=== PATIENT | male | born 1995 | race Caucasian/White ===

== ENCOUNTER 2019-04-20 14:12 | Emergency (ER) | payer BC ==
[~2019-04-20] VITALS: Ht 175.3 cm; Wt 90.7 kg
[2019-04-20] MEDS ORDERED: NOHOMEMEDICATIONS (14:20)
[2019-04-20 15:19] LABS: ABSOLUTE EOSINOPHILS 0.1 thou/uL (0.0-0.7); ABSOLUTE LYMPHOCYTES 1.6 thou/uL (0.8-5.3); ABSOLUTE MONOCYTES 0.3 thou/uL (0.0-1.2); ABSOLUTE NEUTROPHILS 3.7 thou/uL (1.6-8.1); BASOPHILS 0.5 %; EOSINOPHILS 2.5 %; HEMATOCRIT 47.4 % (42.0-52.0); HEMOGLOBIN 15.7 gm/dL (14.0-18.0); LYMPHOCYTES 27.8 %; MCH 27.6 pg (26.0-34.0); MCHC 33.2 g/dL (28.0-37.0); MCV 83.3 fL (80.0-100.0); MONOCYTES 5.2 %; MPV 9.7 fl. (7.2-11.1); NUCLEATED RBCS 0 /100WBC; PLATELET COUNT* 231 thou/uL (150-400); RBC 5.69 mil/uL (4.50-6.00); RDW-CV 13.6 % (10.5-14.5); WBC 5.8 thou/uL (4.0-11.0)
[2019-04-20 15:34] LABS: CALCIUM 9.5 mg/dL (8.5-10.1); CREATININE 0.8 mg/dL (0.6-1.3); POTASSIUM 3.5 mmol/L (3.5-5.1)
[2019-04-20 15:38] LABS: ALBUMIN 4.2 g/dL (3.4-5.0); TOTAL BILIRUBIN 0.8 mg/dL (<0.1-1.0); TOTAL PROTEIN 8.1 g/dL (6.4-8.2)
[2019-04-20] MEDS ORDERED: INDOMETHACIN 5050 M1 PO (15:54)
[2019-04-20 16:16] VITALS: BP 122/72
== END 2019-04-20 16:18 | disposition home or self-care (01) ==
LOC: M.ERS 14:12
PROVIDERS: Physician Assistant
DX: R51 Headache (principal)

== ENCOUNTER 2019-07-02 14:21 | Emergency (ER) | payer BC ==
[~2019-07-02] VITALS: Ht 177.8 cm; Wt 104.3 kg
[~2019-07-02 14:21] MED LIST: INDOMETHACIN 5050 M1 PO; NOHOMEMEDICATIONS
[2019-07-02 15:00] VITALS: BP 128/80
== END 2019-07-02 15:00 | disposition home or self-care (01) ==
LOC: M.ERS 14:21
DX: L03.317 Cellulitis of buttock (principal)

== ENCOUNTER 2020-06-25 12:24 | Emergency (ER) | payer BC ==
[~2020-06-25] VITALS: Ht 175.3 cm; Wt 99.8 kg
[2020-06-25] MEDS ORDERED: NORCO 5-325 TA1 EAC2 PO (14:01)
[2020-06-25 15:00] VITALS: BP 136/72
== END 2020-06-25 14:32 | disposition home or self-care (01) ==
LOC: M.ERS 12:24
DX: S93.402A Sprain of unspecified ligament of left ankle, initial encounter (principal); X58.XXXA Exposure to other specified factors, initial encounter; Y93.61 Activity, american tackle football; Y92.89 Other specified places as the place of occurrence of the external cause; Y99.8 Other external cause status